=== PATIENT | male | born 1950 | race Two or more races ===

== ENCOUNTER 2018-11-24 11:38 | Outpatient (CLI) | payer OTHER | END 2018-11-24 11:54 | disposition home or self-care (01) | LOC: RAD 501 11:38 | DX: J44.1 Chronic obstructive pulmonary disease with (acute) exacerbation (principal); J32.8 Other chronic sinusitis ==

== ENCOUNTER → 2018-12-02 | Outpatient (CLI) | payer OTHER | END | disposition home or self-care (01) | LOC: NUCLEAR 13:00 | DX: M81.0 Age-related osteoporosis without current pathological fracture (principal) ==

== ENCOUNTER 2019-04-08 07:10 | Outpatient (CLI) | payer OTHER | END 2019-04-08 09:10 | disposition home or self-care (01) | LOC: NUCLEAR 07:10 | DX: I87.2 Venous insufficiency (chronic) (peripheral) (principal) ==

== ENCOUNTER 2019-05-20 08:08 | Outpatient (CLI) | payer OTHER | END 2019-05-20 08:22 | disposition home or self-care (01) | LOC: NUCLEAR 08:08 | DX: I11.9 Hypertensive heart disease without heart failure (principal); I49.9 Cardiac arrhythmia, unspecified ==

== ENCOUNTER → 2019-07-19 | Outpatient (CLI) | payer OTHER | END | disposition home or self-care (01) | LOC: RAD 11:35 | DX: M75.21 Bicipital tendinitis, right shoulder (principal) ==

== ENCOUNTER 2021-06-26 08:18 | Outpatient (CLI) | payer OTHER | END 2021-06-26 08:20 | disposition home or self-care (01) | LOC: NUCLEAR 08:18 | PROVIDERS: ATTEND Internal Medicine | DX: I49.8 Other specified cardiac arrhythmias (principal); I11.9 Hypertensive heart disease without heart failure ==

== ENCOUNTER 2021-11-30 10:03 | Outpatient (CLI) | payer OTHER | END 2021-11-30 10:07 | disposition home or self-care (01) | LOC: SONOGRAMA 10:03 | PROVIDERS: ATTEND Internal Medicine | DX: N18.30 Chronic kidney disease, stage 3 unspecified (principal) ==

== ENCOUNTER 2024-06-02 13:28 | Outpatient (CLI) | payer OTHER | END 2024-06-02 13:43 | disposition home or self-care (01) | LOC: SONOGRAMA 13:28 | PROVIDERS: ATTEND Internal Medicine | DX: N18.30 Chronic kidney disease, stage 3 unspecified (principal) ==

== ENCOUNTER 2024-07-22 13:49 | Outpatient (CLI) | payer OTHER | END 2024-07-22 14:00 | disposition home or self-care (01) | LOC: TOM 13:49 | PROVIDERS: ATTEND Internal Medicine | DX: G56.03 Carpal tunnel syndrome, bilateral upper limbs (principal) ==

== ENCOUNTER 2024-08-25 07:06 | Outpatient (CLI) | payer OTHER | END 2024-08-25 07:13 | disposition home or self-care (01) | LOC: RAD 07:06 | PROVIDERS: ATTEND Urology | DX: N20.0 Calculus of kidney (principal) ==

== ENCOUNTER 2024-11-25 14:15 | Outpatient (CLI) | payer OTHER | END 2024-11-25 14:20 | disposition home or self-care (01) | LOC: RAD 14:15 | PROVIDERS: ATTEND Internal Medicine | DX: J44.1 Chronic obstructive pulmonary disease with (acute) exacerbation (principal) ==

== ENCOUNTER → 2024-11-25 14:52 | Outpatient (CLI) | payer OTHER | END | disposition home or self-care (01) | LOC: EKG 14:52 | PROVIDERS: ATTEND Internal Medicine | DX: R00.0 Tachycardia, unspecified (principal); I10 Essential (primary) hypertension ==